=== PATIENT | female | born 1960 | race Caucasian/White ===

== ENCOUNTER 2021-12-11 10:47 | Outpatient (CLI) | payer BC, SELFPAY ==
--- NOTE | 2021-12-11 11:00 | CRLHL7_ITS ---
For Patients: As a result of the Century Cures Act, medical imaging exams and procedure reports are released immediately into your electronic medical record. You may view this report before your referring provider. If you have questions, please contact your health care provider. INDICATION: Pelvic pressure TECHNIQUE: Ultrasound pelvis transabdominal and transvaginal for better assessment or to better visualize the endometrium. Real time sonographic images with Spectral and color Doppler imaging of the ovaries were obtained. COMPARISON: None FINDINGS: Uterus: History of hysterectomy. Right ovary: 1.6 centimeter x 0.6 centimeter x 1.2 centimeters. No ovarian or adnexal masses. Normal arterial and venous blood flow. Left ovary: 4.3 centimeters x 0.6 centimeter x 1.3 centimeters no ovarian or adnexal masses. Normal arterial and venous blood flow. Cul-de-sac: No significant free fluid. IMPRESSION: History of hysterectomy. No definite more recent adnexa. No significant free fluid. Dictated by Sal Garibay MD @ 12/11/2021 11:59:52 AM (Electronically Signed)
== END 2021-12-11 10:48 | disposition home or self-care (01) ==
LOC: US 10:48
PROVIDERS: Visit Provider Obstetrics & Gynecology
DX: R10.2 Pelvic and perineal pain (principal)
CPT/HCPCS: 76830; 76856

== ENCOUNTER 2022-01-13 15:30 | Outpatient (RCR) | payer BC, SELFPAY ==
--- NOTE | 2021-12-09 15:21 | PT.OPEX ---
PT [facility] PT [facility] Out[facility] Eval Start: 12/04/21 14:59 Freq: Status: Active Protocol: Document 12/09/21 14:16 DEMARCUS (Rec: 12/09/21 14:44 DEMARCUS [id number]) E-Signed By Lesa New, PT Physical Therapy Outpatient Evaluation Insurance Information Insurance Name [employer] Medical Diagnosis Weakness of PFM Female genital prolapse Treating Diagnosis prolapse 1 year after POP repair weakness/lack of coordination Referring MD Karen Subjective Subjective Fabiola presents to PT with main c/o pressure and heaviness in her vagina. Pt had a hysterectomy, and bladder and bowel repair in 04/2020. Surgery was for a larger prolapse that was palatable externally. Initially pt did well with recovery and a reduction in her symptoms. Then around 04/2021, pt started to notice feeling of pressure and heaviness again. Symptoms started off intermittent and slow, but have worsened over time. Notices more symptoms of pressure by end of day. At times, does feel like there is tissue in the vagina that is reminiscent of how her symptoms were prior to her surgery. Bowel and bladder symptoms are mild. Does have some urinary urgency and frequency but feels like she can somewhat control her symptoms. Pt's bowel function has improved with use of Benefiber. No issues with stool incontinence of urgency. At time does struggle with controlling gas. Her goal for therapy is to reduce symptoms of vaginal pressure and heaviness. Precautions Treatment Precautions/Contraindications diabetes B knee pain intermittent back pain Assessment Assessment/Impression 61 yo clients presents with symptoms of POP. Apr 2020 pt had a hysterectomy and bladder /bowel repair with good success. Then at 12 year post op, she started to have symptoms that have gradually worsened and have become more alarming and restrictive. Overall has a good diet and drinks appropriate amounts of fluid. Does need to push with bowel movements occasionally and may be using Valsalva to help get stool out. Does some lifting at work and prolonged standing which seems to lead to symptoms of more pelvic pressure and heaviness. Feel that pt has limited ability to manage her IAP. Will assess pelvic and PFM symptoms at her next session. Plan is to continue with further skilled PT services to address her current symptoms with use of ther exs, ther act, self care, NMRE and MT. Plan of Care Rehabilitation Potential Good Physical Therapy Goals Short term goals to be achieved in 4 weeks. 1. Able to lift 5# items with correct mechanics and breathing without symptoms severity over 05/25 2. Able to report proper breathing techniques with pushing to defecate and with lifting mechanics. 3. Able to state 4 of 4 urge suppression/bladder retraining strategies shelter goals to be achieved in 12 weeks. 1. Pt will be independent with home program for symptom reduction. 2. 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 Able to report voiding approx 8X per day, with intervals of 1X every 2-4 hours, 6 out of 7 days. 4. Able to report an 75% reduction in her POP symptoms with ability to perform all activities as needed at work and home. Coordination/Communication With Referral Source Treatment Plan/Direct Interventions Joint Mobilization,Manual Therapy,Neuromuscular Re-ed, Self-Care/Home Management, Therapeutic Activities, Therapeutic Exercises Frequency/Duration 1 time a week for up to 12 weeks. Patient Will Be Discharged From Therapy Completion of LTG(s),Skills Plateau,Independent w/HEP, Independently Progressing Evaluation Billing Untimed Code Treatment Minutes 40 Complexity Moderate
== END 2022-05-06 11:04 | disposition home or self-care (01) ==
PROVIDERS: Visit Provider Obstetrics & Gynecology
DX: N81.10 Cystocele, unspecified (principal); Z51.89 Encounter for other specified aftercare
CPT/HCPCS: 97110; 97140; 97162; 97535